=== PATIENT | male | born 2005 | race Caucasian/White ===

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

== ENCOUNTER 2024-03-22 16:34 | Emergency (ER) | payer OTHER, SELFPAY ==
[2024-03-22 16:45] VITALS: BP 125/80; PULSE 85; RESP 16; TEMP 36.6; O2SAT 100
--- NOTE | 2024-03-22 19:45 | ED.EAR ---
HPI - Ear Problem General Chief complaint: Ear Stated complaint: ear pain and clogging Time Seen by Provider: 03/22/24 16:52 Source: patient, RN notes reviewed and old records reviewed Mode of arrival: ambulatory Limitations: no limitations History of Present Illness HPI Narrative: 18-year-old male to [facility] with complaints of right ear feeling clogged and decreased hearing since yesterday after taking a shower. Patient reports occasional throbbing pain. Patient states history using Q-tips in his ears reports using Debrox once yesterday. Patient denies any sick symptoms this time. Patient able to tolerate fluids by mouth. Patient resting comfortably in exam room in no acute distress. Related Data Allergies Allergy/AdvReac Type Severity Reaction Status Date / Time amoxicillin AdvReac Intermediate Nausea and Verified 03/22/24 16:48 Vomiting Cephalosporins AdvReac Intermediate Nausea and Verified 03/22/24 16:37 Vomiting Review of Systems Review of Systems: All systems reviewed & are unremarkable except as noted in HPI and below Constitutional: Constitutional: Reports no additional constitutional complaints Eyes: Eyes: Reports no additional eye complaints ENT: Reports as per HPI and Reports otalgia ( Right) Cardiovascular: Cardiovascular: Reports no additional cardiovascular complaints, Denies chest pain and Denies dyspnea Respiratory: Respiratory: Reports no additional respiratory complaints, Denies cough and Denies dyspnea Musculoskeletal: Musculoskeletal: Reports no additional musculoskeletal complaints Neurologic: Reports system reviewed and no additional complaints, except as documented Psychiatric: Psychiatric: Reports no additional psychiatric complaints PMFSH Social History Social History Smoking status: Never smoker Comments At the time of my signature, I reviewed and agree with the nursing past medical, surgical, social, and family history. There is no relevant family history pertinent to the patient complaint. Exam Const: General: cooperative, healthy appearing, comfortable, no acute distress, alert and well nourished Nutritional Appearance: well nourished Orientation/consciousness: patient oriented x3 Limitations: no limitations HENMT: Head: normal to inspection Ears: external ears normal and Abnormal EAC present cerumen impaction on the right, excessive cerumen on the left, erythema on the right, edema on the right and EAC tenderness on the right Face/Nose/Sinus: Normal external nose present, Normal nares present, normal facial exam, No erythema and No edema Face and sinus: normal facial exam, no erythema and no edema Mouth: Yes Normal oral and palatal mucosa present Eyes: General: appearance normal, both eyes and all related structures Neck: Neck: normal visual inspection, full ROM and no meningeal signs Lymphatic: no lymphadenopathy noted and no lymphedema noted Chest: Chest palpation & inspection: normal inspection of the chest Resp: Effort & Inspection: normal respiratory effort and able to speak in complete sentences Auscultation: clear to auscultation bilaterally Cardio: Jugular venous distension: no JVD Rate: regular rate Rhythm: regular rhythm Back/Spine/Pelvis: Cervical Spine: cervical ROM normal Skin: General skin exam: normal color, no rashes or lesions noted and turgor normal Neuro: General: patient oriented x3, gait normal, moves all extremities and no meningeal signs Speech: normal speech Gait exam (Neuro): Normal gait present Extrem: General: normal to inspection, full ROM and capillary refill normal Psych: Appearance: grossly normal and well kempt Course Course Emergency Course: Some parts of this dictation were generated by voice recognition software and may contain typographical and/or grammatical inaccuracies. Level of Care: Express Care Visit Vital Signs Vital signs: Vital Signs Temperature 36.6 C 03/22/24 16:45 Pulse Rate 85 03/22/24 16:45 Respiratory Rate 16 03/22/24 16:45 Blood Pressure 125/80 03/22/24 16:45 Pulse Oximetry 100 03/22/24 16:45 Oxygen Delivery Room Air 03/22/24 16:45 Temperature 36.6 C 03/22/24 16:45 Pulse Rate 85 03/22/24 16:45 Respiratory Rate 16 03/22/24 16:45 Blood Pressure 125/80 03/22/24 16:45 Pulse Oximetry 100 03/22/24 16:45 Oxygen Delivery Room Air 03/22/24 16:45 reviewed Procedures Ear Wax Removal Both Ears: Ear Wax Removal Date: 03/22/24 TM Examination: TM(s) intact, normal appearance ( left) Ear Canal Exam: atraumatic ( left) and other ( right EAC erythematous, edematous, acutely tender) Patient Tolerated Procedure: well Complications: pain Technique: ear canal irrigated and ear canal curetted Medical Decision Making [facility] Narrative Medical decision making narrative: 18-year-old male to [facility] with complaints of right ear feeling clogged and decreased hearing since yesterday after taking a shower. Patient reports occasional throbbing pain. Patient states history using Q-tips in his ears reports using Debrox once yesterday. Patient denies any sick symptoms this time. Patient able to tolerate fluids by mouth. Patient resting comfortably in exam room in no acute distress. on exam, left EAC with excessive cerumen. Patient requested to have removed while he is here. Removal with irrigation and curette successful. Right EAC impacted with cerumen; EAC erythematous, edematous, acutely tender. Partial removal with curette and irrigation successful. However, impaction remains. Patient is sitting comfortably in exam room nontoxic in appearance. Patient appropriate for outpatient treatment and follow-up. Discharge instructions reviewed with patient, as well as provided in writing per nursing staff. The instructions also include specific and strict return/GO TO THE ER as well as f/u information. All questions have been answered, and the patient deny any further questions with discharge and discharge plan. Some parts of this dictation were generated by voice recognition software and may contain typographical and/or grammatical inaccuracies. Differential Diagnosis Differential Diagnosis: otitis media, otitis externa, excessive cerumen, cerumen impaction, ruptured tympanic membrane, foreign body ear Vital Signs Vital Signs: Vital Signs Temperature 36.6 C 03/22/24 16:45 Pulse Rate 85 03/22/24 16:45 Respiratory Rate 16 03/22/24 16:45 Blood Pressure 125/80 03/22/24 16:45 Pulse Oximetry 100 03/22/24 16:45 Oxygen Delivery Room Air 03/22/24 16:45 Temperature 36.6 C 03/22/24 16:45 Pulse Rate 85 03/22/24 16:45 Respiratory Rate 16 03/22/24 16:45 Blood Pressure 125/80 03/22/24 16:45 Pulse Oximetry 100 03/22/24 16:45 Oxygen Delivery Room Air 03/22/24 16:45 Discharge Plan Discharge Clinical Impression: Acute right otitis media, Impacted cerumen of right ear, Excessive cerumen in left ear canal Patient Disposition: Home, Self-Care Condition: Stable Instructions: Ear Infection (GEN) Additional Instructions: please stop using Q-tips immediately. Do not stick fingertips or any other object into your ear. Please finish entire course of antibiotic treatment should decreased hearing continue please use attached referral information to follow up with ENT specialist for new or worsening symptoms please go directly to the emergency department Prescriptions: New prednisone 20 mg tablet See Rx Instructions .ROUTE .COMPLEX Qty: 9 0RF Rx Instructions: Take 40mg x3 days, 20mg x3 days azithromycin 250 mg tablet 250 mg PO DAILY Qty: 6 0RF Rx Instructions: 250 mg orally. Take TWO tablets today, then one tablet daily for 4 days. Follow-up/Referrals: Suleman Carmen MD [Physician] - PHYSICIAN,REGULATOR ASSEMBLER [Primary Care Provider] -
== END 2024-03-22 17:16 | disposition home or self-care (01) ==
PROVIDERS: Emergency Provider Nurse Practitioner Family; Referring Provider Emergency Medicine
DX: H66.91 Otitis media, unspecified, right ear (principal); H61.23 Impacted cerumen, bilateral
CPT/HCPCS: 99203; G0463